=== PATIENT | female | born 1985 | race Caucasian/White ===

== ENCOUNTER 2021-11-28 05:46 | Inpatient (IN) ==
[2021-11-26 10:00] LABS: Basophils % 0.5 % (0.0-0.8); Eosinophils # 0.4 10*3/uL (0.0-0.87); Eosinophils % 5.3 % (0.00-10.9); Hematocrit 39.8 VOL% (35.7-47.0); Hemoglobin 13.4 GM/DL (12.0-16.0); Immature Granulocytes % 0.6 %; Immature Granulocytes Absolute 0.04 #; Lymphocytes % 30.6 % (21.3-54.2); Mean Corpuscular HGB Conc 33.7 GM/DL (32-36); Monocytes # 0.5 10*3/uL (0.11-0.8); Monocytes % 7.1 % (1.7-12.7); Neutrophils % 55.9 % (38.7-73.9); Platelet Count 311 T/CUMM (130-400); Red Blood Count 4.42 MC/CUMM (3.8-5.5); Red Cell Distribution Width 13.1 % (9.3-17.3); White Blood Count 6.7 T/CUMM (4-12)
[2021-11-26 10:25] LABS: Calcium 9.2 MG/DL (8.5-10.1); Osmolality,Calculated 274.5 MOS/KG (273-304); Potassium 4.2 MMOL/L (3.5-5.1)
[2021-11-28] MEDS ORDERED: ERTAPENEM 1,000 MG in SODIUM CHLORIDE 0.9% 100 ML IV ONE (06:00)
[2021-11-28] MEDS: LACTATED RINGERS 1,000 ML IV SCH ×2 (07:29→16:05)
[2021-11-28] MEDS ORDERED: FAMOTIDINE 20 MG TABLET PO ONE (07:40)
[2021-11-28] MEDS ORDERED: ROCURONIUM 50 MG/5 ML VIAL IV ONE (08:15)
[2021-11-28] MEDS ORDERED: ONDANSETRON 4 MG/2 ML VIAL ONE (08:15)
[2021-11-28] MEDS ORDERED: LIDOCAINE 2% 5 ML VIAL ONE (08:15)
[2021-11-28] MEDS ORDERED: propofoL 200 MG/20 ML VIAL IV ONE (08:15)
[2021-11-28] MEDS ORDERED: fentaNYL 100 MCG/2 ML VIAL ONE ×5 (08:17→10:42)
[2021-11-28] MEDS ORDERED: MIDAZOLAM 2 MG/2 ML VIAL ONE ×2 (08:17→08:29)
[2021-11-28] MEDS ORDERED: PHENYLEPHRINE 1 MG/10 ML SYRINGE IV ONE ×2 (08:18→11:09)
[2021-11-28] MEDS ORDERED: ROPIVACAINE 0.5% 30 ML VIAL ONE (08:28)
[2021-11-28] MEDS ORDERED: LIDOCAINE 1% 5 ML VIAL ONE (08:28)
[2021-11-28] MEDS ORDERED: DEXAMETHASONE 4 MG/1 ML VIAL ONE ×2 (08:28→12:51)
[2021-11-28] MEDS ORDERED: TISSUE ADHESIVE 1 EACH APPLICATOR TOP ONE (09:13)
[2021-11-28] MEDS ORDERED: ACETAMINOPHEN INJ 1,000 MG/100 ML VIAL IV ONE (09:44)
[2021-11-28] MEDS ORDERED: LACTATED RINGERS 1,000 ML IV ONE ×3 (09:51→12:30)
[2021-11-28] MEDS ORDERED: HYDROmorphone 1 MG/1 ML SYRINGE ONE (10:32)
[2021-11-28] MEDS ORDERED: ALBUMIN IV ONE (11:28)
[2021-11-28] MEDS ORDERED: ALBUMIN 5% 12.5 GM/250 ML VIAL IV ONE (11:29)
[2021-11-28] MEDS ORDERED: GLYCOPYRROLATE 0.4 MG/2 ML VIAL ONE (13:04)
[2021-11-28] MEDS ORDERED: NEOSTIGMINE 10 MG/10 ML VIAL ONE (13:04)
[2021-11-28] MEDS ORDERED: SEVOFLURANE 1 UNIT/15 MINUTE INH ONE (13:21)
[2021-11-28] MEDS ORDERED: ACETAMINOPHEN 325 MG TABLET PO PRN (13:29)
[2021-11-28] MEDS ORDERED: ONDANSETRON 4 MG/2 ML VIAL IV PRN ×2 (13:29→14:24)
[2021-11-28] MEDS: HYDROmorphone 1 MG/1 ML SYRINGE IV PRN ×2 (14:20→15:15)
[2021-11-28] MEDS ORDERED: PROMETHAZINE INJ 25 MG in SODIUM CHLORIDE 0.9% 50 ML IV PRN (17:54)
[2021-11-28] MEDS ORDERED: PROMETHAZINE 25 MG TABLET PO PRN (17:54)
[2021-11-28] MEDS: ALVIMOPAN 12 MG CAPSULE PO SCH (21:30)
[2021-11-29 06:32] LABS: Basophils % 0.2 % (0.0-0.8); Hematocrit 33.3 VOL% (35.7-47.0); Hemoglobin 11.1 GM/DL (12.0-16.0); Immature Granulocytes % 0.5 %; Immature Granulocytes Absolute 0.06 #; Lymphocytes # 1.2 10*3/uL (1.4-4.0); Lymphocytes % 10.1 % (21.3-54.2); Mean Corpuscular HGB Conc 33.3 GM/DL (32-36); Mean Corpuscular Volume 91.5 FL (87-102); Mean Platelet Volume 10.5 FL (9.6-12.0); Monocytes # 0.9 10*3/uL (0.11-0.8); Monocytes % 7.4 % (1.7-12.7); Neutrophils % 81.8 % (38.7-73.9); Platelet Count 262 T/CUMM (130-400); Red Blood Count 3.64 MC/CUMM (3.8-5.5); Red Cell Distribution Width 13.2 % (9.3-17.3); White Blood Count 12.3 T/CUMM (4-12)
[2021-11-29 06:56] LABS: Calcium 8.9 MG/DL (8.5-10.1); Osmolality,Calculated 279.3 MOS/KG (273-304)
[2021-11-29] MEDS: PANTOPRAZOLE 40 MG VIAL IV SCH (08:32)
[2021-11-29] MEDS: HYDROmorphone 1 MG/1 ML SYRINGE IV PRN ×3 (08:32→23:52)
[2021-11-29] MEDS: ALVIMOPAN 12 MG CAPSULE PO SCH ×2 (08:32→20:22)
[2021-11-29] MEDS: LACTATED RINGERS 1,000 ML IV SCH ×3 (08:35→22:35)
[2021-11-29] MEDS: ENOXAPARIN 40 MG/0.4 ML SYRINGE SUBCUT SCH (08:44)
[2021-11-30] MEDS: ALVIMOPAN 12 MG CAPSULE PO SCH (08:21)
[2021-11-30] MEDS: PANTOPRAZOLE 40 MG VIAL IV SCH (08:24)
[2021-11-30] MEDS: ENOXAPARIN 40 MG/0.4 ML SYRINGE SUBCUT SCH (08:30)
[2021-11-30] MEDS: LACTATED RINGERS 1,000 ML IV SCH ×2 (10:10→14:38)
[2021-11-30 11:57] VITALS: BP 110/75
== END 2021-11-30 15:17 | disposition home or self-care (01) | DRG 231 ==
LOC: N.OR 05:46 → N.SDSINP 05:48 → N.3E 15:58
PROVIDERS: ADMIT Student in an Organized Health Care Education/Training Program; ATTEND Student in an Organized Health Care Education/Training Program